=== PATIENT | male | born 1945 | race Caucasian/White ===

== ENCOUNTER 2016-12-10 15:37 | Emergency (ER) | payer MEDICARE, OTHER ==
[~2016-12-10] VITALS: Ht 177.8 cm; Wt 77.0 kg
[2016-12-10 15:39] VITALS: BP 179/84; PULSE 80; RESP 16; TEMP 98.1; O2SAT 99
[2016-12-10] MEDS ORDERED: IBUP200C PO (15:55)
--- NOTE | 2016-12-10 16:04 | RADRPT ---
EXAM DATE/TIME: 12/10/2016 16:12 [place] COMPARISON: No previous studies available for comparison. INDICATIONS : Right ankle pain from fall. MEDICAL HISTORY : None. SURGICAL HISTORY : None. ENCOUNTER: Initial ACUITY: 4 - 6 days PAIN SCORE: 8/10 LOCATION: lateral side of ankle. FINDINGS: Three view exam was performed of the right ankle. The bony structures are in normal alignment. No e vidence of fracture, dislocation, or soft tissue swelling. The ankle mortise is intact. No radiopaq ue foreign bodies are seen. Bony mineralization is normal. CONCLUSION: Unremarkable examination of the right ankle. Erik Pinon Jr., MD on December 10, 2016 at 16:02 Board Certified Radiologist. This report was verified electronically.
--- NOTE | 2016-12-10 16:14 | PD ---
HPI Chief Complaint: Injury Time Seen by Provider: 15:45 Travel History International Travel<30 days: No Contact w/Intl Traveler<30days: No Traveled to known affect area: No History of Present Illness HPI 71 year old male who has had some pain and swelling at the right lateral malleolus for the past few days after running. Patient denies inversion/ eversion injury. Denies feeling sudden onset of pain. Patient states has not had problem with his ankle in past. Works as a housekeeper cleaning cooking at [employer] and is unsure if he can work 2/2 pain. Patient states pain and swelling worse at the end of the day. He has been able to ambulate. Denies any other injury. PFSH Past Medical History Influenza Vaccination: Yes Past Surgical History Abdominal Surgery: Yes (inguinal hernia) Social History Alcohol Use: No Tobacco Use: No Substance Use: No Allergies-Medications (Allergen,Severity, Reaction): Coded Allergies: No Known Allergies (Unverified , 12/10/16) Reported Meds & Prescriptions Reported Meds & Active Scripts Active [place] (Hydrocodone-Acetaminophen) 10-325 Mg Tab 1 Tab PO Q6H PRN Reported Ibuprofen 200 Mg Cap 200 Mg PO Q6H PRN Review of Systems Except as stated in HPI: all other systems reviewed are Neg Physical Exam Narrative GENERAL: WD/WN in nad. SKIN: Warm and dry. HEAD: Normocephalic. EYES: No scleral icterus. No injection or drainage. NECK: Supple, trachea midline. No JVD or lymphadenopathy. CARDIOVASCULAR: Regular rate and rhythm without murmurs, gallops, or rubs. RESPIRATORY: Breath sounds equal bilaterally. No accessory muscle use. GASTROINTESTINAL: Abdomen soft, non-tender, nondistended. MUSCULOSKELETAL: No cyanosis, or edema. There is some minor swelling of the right lateral malleolus. No laxity of the ankle. Minimally tender at the tip of the fibula. No other tenderness nor swelling of the RLE. LLE WNL. Pulses motor and sensory intact bilaterally in lower exts. Compartments are soft. BACK: Nontender without obvious deformity. No CVA tenderness. Data Data Last Documented VS Vital Signs Date Time Temp Pulse Resp B/P Pulse Ox O2 Delivery O2 Flow Rate FiO2 12/10/16 15:39 98.1 80 16 179/84 99 Room Air Orders Ankle, Complete (Ahm4rhd) (12/10/16 ) Ibuprofen (Motrin) (12/10/16 16:15) ^ Artemio Bandage (12/10/16 16:11) MDM Medical Decision Making Medical Screen Exam Complete: Yes Emergency Medical Condition: Yes Differential Diagnosis Strain, sprian, fracture, vascular disease unlikely, DVT excluded clinically. Narrative Course Roomed in ED. Offered pain medication and he initially declined. Ibuprofen was given prior to DC however. Xray obtained. Last 24 hours Impressions Ankle X-Ray 12/10/16 0000 Signed Impressions: Service Date/Time: Saturday, December 10, 2016 16:12 - CONCLUSION: Unremarkable examination of the right ankle. Erik Pinon Jr., MD Patient counsled on RICE therapy and follow up with PCP. Discussed possible need for OP MRI in future. Stable for discharge. Addendum; I saw Mr. Campo on 12/13, stillhaving pain and requesting something stronger for pain medication. DIscussed voltaren gel versus norco. Will do short course of norco, reminded to follow up with PCP. Diagnosis Primary Impression: Ankle sprain Qualified Code: S93.401A - Sprain of right ankle, unspecified ligament, initial encounter Med/Other Pt SpecificInfo: Prescription(s) given Scripts Hydrocodone-Acetaminophen ([place])10-325 Mg Tab1 Tab PO Q6H PRN (PAIN) #10 TAB Ref 0 Prov:Jared Sanchez MD 12/13/16 Disposition: 01 DISCHARGE HOME Condition: Stable Jared Sanchez MD Dec 10, 2016 16:14
[2016-12-10] MEDS ORDERED: IBUPROFEN 600 MG TAB PO ONE (16:15)
[2016-12-13] MEDS ORDERED: HYDR-3366 PO (23:25)
== END 2016-12-10 16:27 | disposition home or self-care (01) ==
LOC: NEPA 15:37
DX: S93.401A Sprain of unspecified ligament of right ankle, initial encounter (principal); X58.XXXA Exposure to other specified factors, initial encounter; Y93.02 Activity, running
CPT/HCPCS: 73610; 99283

== ENCOUNTER → 2016-12-27 | Outpatient (CLI) | payer OTHER ==
[~2016-12-27] MED LIST: HYDR-3366 PO; IBUP200C PO
[2016-12-27 08:36] LABS: BASOPHIL # 0.1 TH/MM3 (0-0.2); BASOPHIL % 0.6 % (0.0-2.0); EOSINOPHIL # 0.2 TH/MM3 (0-0.4); EOSINOPHIL % 1.8 % (0.0-4.0); HEMATOCRIT 47.6 % (39.0-51.0); HEMO FLAGS DIFF FINAL; LYMPH % 21.4 % (9.0-44.0); LYMPHOCYTE # 1.9 TH/MM3 (1.0-4.8); MEAN CELL VOLUME 87.2 FL (80.0-100.0); MEAN CORPUSCULAR HEMOGLOBIN 28.6 PG (27.0-34.0); MEAN CORPUSCULAR HGB CONC 32.8 % (32.0-36.0); MONO % 7.1 % (0.0-8.0); NEUT % 69.1 % (16.0-70.0); PLATELET COUNT 268 TH/MM3 (150-450); RED BLOOD COUNT 5.46 MIL/MM3 (4.50-5.90); RED CELL DISTRIBUTION WIDTH 13.9 % (11.6-17.2); WHITE BLOOD COUNT 8.7 TH/MM3 (4.0-11.0)
[2016-12-27 09:03] LABS: ANION GAP 8 MEQ/L (5-15); AST (GOT) 17 U/L (15-37); BICARBONATE 29.6 MEQ/L (21.0-32.0); BLOOD UREA NITROGEN 16 MG/DL (7-18); CHLORIDE 103 MEQ/L (98-107); GLOMERULAR FILTRATION RATE 60 ML/MIN (>89); GLUCOSE,FASTING 103 MG/DL (74-99); POTASSIUM 4.1 MEQ/L (3.5-5.1); SODIUM (NA) 141 MEQ/L (136-145)
[2016-12-27 09:14] LABS: ALKALINE PHOSPHATASE 144 U/L (45-117); ALT (GPT) 31 U/L (12-78); HDL CHOLESTEROL 48.4 MG/DL (40.0-60.0); LDL CHOLESTEROL 73 MG/DL (0-99); TOTAL BILIRUBIN ADULT 0.5 MG/DL (0.2-1.0)
[2016-12-27 09:35] LABS: HEMOGLOBIN A1a 1.1 %; HEMOGLOBIN A1b 1.1 %; HEMOGLOBIN Ao 84.3 %; HEMOGLOBIN F 0.8 %
== END ==
LOC: CLAB 08:09
PROVIDERS: ATTEND Nurse Practitioner Family
DX: E78.5 Hyperlipidemia, unspecified (principal); I10 Essential (primary) hypertension; Z13.1 Encounter for screening for diabetes mellitus; Z51.81 Encounter for therapeutic drug level monitoring; Z12.5 Encounter for screening for malignant neoplasm of prostate
CPT/HCPCS: 36415; 80053; 80061; 83036; 84153; 84439; 84443; 85025